=== PATIENT | male | born 1955 | race Caucasian/White ===

== ENCOUNTER 2016-07-24 12:45 | Emergency (ER) | payer OTHER | END 2016-07-24 13:17 | disposition left against medical advice (07) | LOC: UCCORT 12:45 | DX: Z53.21 Procedure and treatment not carried out due to patient leaving prior to being seen by health care provider (principal); R21 Rash and other nonspecific skin eruption ==

== ENCOUNTER 2016-07-24 14:56 | Emergency (ER) | payer OTHER ==
[2016-07-24 15:33] VITALS: BP 121/58
--- NOTE | 2016-07-24 15:47 | UC ---
Lower Extremity/Ankle HPI - HPI Summary HPI Summary: Pt has diabetes, HTN, has skin changes/flaking/thickening from vascular disease on lower legs which he picks at, hx of lower leg cellulitis. Noticed a small area of redness and pain on L posterior calf/ankle 2 days ago, is worried about progressing infection. No fever, streaking, or trouble walking. Denies pain in the calf. - History of Current Complaint Chief Complaint: [employer]kin Stated Complaint: LEFT LEG SKIN COMPLAINT Time Seen by Provider: 07/24/16 15:24 Hx Obtained From: Patient Onset/Duration: Gradual Onset Severity Initially: Mild Severity Currently: Mild Aggravating Factor(s): Nothing Alleviating Factor(s): Rest Able to Bear Weight: Yes - Allergies/Home Medications Allergies/Adverse Reactions: Allergies Allergy/AdvReac Type Severity Reaction Status Date / Time No Known Allergies Allergy Verified 07/24/16 15:23 PMH/Surg Hx/FS Hx/Imm Hx Endocrine History Of: Reports: Diabetes Cardiovascular History Of: Reports: Hypertension Denies: Pacemaker/ICD GI/ History Of: Reports: Renal Disease - Surgical History Surgical History: Yes Surgery Procedure, Year, and Place: BIOPSY OF LYMPH NODE IN NECK,. TMJ SUGERY - Family History Known Family History: Positive: Hypertension - Social History Alcohol Use: None Substance Use Type: None Smoking Status (MU): Never Smoked Tobacco Review of Systems Constitutional: Negative Skin: Rash, Other - redness Eyes: Negative ENT: Negative Respiratory: Negative Cardiovascular: Negative Gastrointestinal: Negative Genitourinary: Negative Motor: Negative Neurovascular: Negative Musculoskeletal: Negative Neurological: Negative Psychological: Negative All Other Systems Reviewed And Are Negative: Yes Physical Exam Triage Information Reviewed: Yes Appearance: Well-Appearing, No Pain Distress, Well-Nourished Vital Signs: Initial Vital Signs Temp 96.2 F 07/24/16 15:29 Pulse 80 07/24/16 15:29 Resp 20 07/24/16 15:29 BP 121/58 07/24/16 15:29 Pulse Ox 97 07/24/16 15:29 Vital Signs Reviewed: Yes Eye Exam: Normal Eyes: Positive: Conjunctiva Clear ENT Exam: Normal ENT: Positive: Normal ENT inspection, Hearing grossly normal, Pharynx normal, TMs normal Dental Exam: Normal Neck exam: Normal Neck: Positive: Supple, Nontender, No Lymphadenopathy Respiratory Exam: Normal Respiratory: Positive: Chest non-tender, Lungs clear, Normal breath sounds, No respiratory distress, No accessory muscle use Cardiovascular: Positive: RRR, Murmur:Sys:Grade _?_/ - I/ Musculoskeletal Exam: Normal, Other - femi negative Musculoskeletal: Positive: Strength Intact, ROM Intact Neurological Exam: Normal Psychological Exam: Normal Skin Exam: Other - thickened, darkened skin with scars on BLE, multiple flaking and raw areas that pt says he picks at. LLE posterior ankle/calf more red and swollen, no swelling in upper aspect of lower leg. Lower Extremity Course/Dx - Differential Dx/Diagnosis Provider Diagnoses: L leg cellulitis Discharge - Discharge Plan Condition: Stable Disposition: HOME Prescriptions: DOXYcycline CAP(*) [DOXYcycline 100MG CAP(*)] 100 mg PO BID #14 cap Patient Education Materials: Cellulitis (ED) Referrals: Matias Velazquez MD [Primary Care Provider] - 3 Days Additional Instructions: Use warmth and elevation to hasten improvement; try to see your primary care provider for a recheck next Tuesday or Tuesday. If you have any sudden worsening , please go to the emergency department.
== END 2016-07-24 15:47 | disposition home or self-care (01) ==
LOC: UCCORT 14:56
DX: L03.116 Cellulitis of left lower limb (principal); I10 Essential (primary) hypertension; E11.9 Type 2 diabetes mellitus without complications
CPT/HCPCS: 99212; G0463